=== PATIENT | female | born 1960 | race Caucasian/White ===

== ENCOUNTER 2023-08-30 12:27 | Emergency (ER) | payer OTHER ==
[~2023-08-30] VITALS: Ht 175.3 cm; Wt 91.0 kg
[2023-08-30 13:09] VITALS: BP 148/99; PULSE 109; RESP 16; TEMP 100.3; O2SAT 96
[2023-08-30] MEDS: TETanus/Pertussis (Acell)/Diphther VAC/PF (Tdap-Adult) 0.5ml syringe IMVAC ONE (14:31)
[2023-08-30] MEDS: LIDOcaine 1% 30ml preserv. free vial IJ STA (14:36)
== END 2023-08-30 15:14 | disposition home or self-care (01) ==
LOC: ER 12:28
DX: S51.811A Laceration without foreign body of right forearm, initial encounter (principal); W01.0XXA Fall on same level from slipping, tripping and stumbling without subsequent striking against object, initial encounter; Y93.89 Activity, other specified; Y92.096 Garden or yard of other non-institutional residence as the place of occurrence of the external cause; Y99.8 Other external cause status
CPT/HCPCS: 12002; 90471; 90715; 99284; A6258; A6449